=== PATIENT | female | born 1965 | race Two or more races ===

== ENCOUNTER 2022-08-10 09:40 | Outpatient (CLI) | payer OTHER ==
[~2022-08-10 09:40] MED LIST: LEXAPRO5 MG PO
== END 2022-08-10 09:44 | disposition home or self-care (01) ==
LOC: SONOGRAMA 09:40
PROVIDERS: ATTEND Pathology Anatomic Pathology & Clinical Pathology
DX: C73 Malignant neoplasm of thyroid gland (principal); E89.0 Postprocedural hypothyroidism